=== PATIENT | male | born 1985 | race Two or more races ===

== ENCOUNTER 2017-02-07 00:47 | Emergency (ER) | payer MEDICAID ==
[~2017-02-07] VITALS: Ht 170.2 cm; Wt 77.1 kg
[2017-02-07 01:04] VITALS: BP 123/66
[2017-02-07] MEDS ORDERED: LIDOCAINE VISCOUS 2% UD 15 ML UDC ONE (01:16)
[2017-02-07] MEDS ORDERED: MAG HYDROX/AL HYDROX/SIMETH 30 ML UDC ONE (01:16)
[2017-02-07] MEDS ORDERED: ONDANSETRON 4 MG TAB.RAPDIS ONE (01:16)
[2017-02-07] MEDS: LIDOCAINE VISCOUS 2% UD 15 ML UDC MM ONE (01:21)
[2017-02-07] MEDS: ONDANSETRON 4 MG TAB.RAPDIS SL ONE (01:21)
[2017-02-07] MEDS: MAG HYDROX/AL HYDROX/SIMETH 30 ML UDC PO ONE (01:21)
== END 2017-02-07 01:51 | disposition home or self-care (01) ==
LOC: ER 00:47
DX: K21.9 Gastro-esophageal reflux disease without esophagitis (principal); F17.200 Nicotine dependence, unspecified, uncomplicated
CPT/HCPCS: A4606; Q0162; Z7610